=== PATIENT | male | born 1950 | race Caucasian/White ===

== ENCOUNTER 2021-04-24 17:32 | Emergency (ER) | payer MEDICARE, BC ==
[2021-04-24] MEDS ORDERED: Cephalexin 500 MG Cap PO STA (17:50)
--- NOTE | 2021-04-24 17:52 | EDM.PDOC ---
ED HPI GENERAL MEDICAL PROBLEM - General Stated Complaint: L MIDDLE FINGER PAIN Time Seen by Provider: 04/24/21 17:50 Source of Information: Reports: Patient History Limitations: Reports: No Limitations - History of Present Illness INITIAL COMMENTS - FREE TEXT/NARRATIVE: Patient presented to the ED because of left mid finger pain, swelling, redness and pain which started 2 days ago. He poked it an a serous dischage came out and the following day it's swollen and tender. Left Finger-Middle Pain Score (Numeric/FACES): 3 - Related Data Allergies Allergy/AdvReac Type Severity Reaction Status Date / Time No Known Allergies Allergy Verified 04/24/21 17:46 Home Meds: Home Meds cephALEXin [Keflex] 500 mg PO Q8H #30 cap 04/24/21 [Rx] ED ROS GENERAL - Review of Systems Review Of Systems: See Below Constitutional: Reports: No Symptoms HEENT: Reports: No Symptoms Respiratory: Reports: No Symptoms Cardiovascular: Reports: No Symptoms Endocrine: Reports: No Symptoms GI/Abdominal: Reports: No Symptoms : Reports: No Symptoms Musculoskeletal: Reports: No Symptoms Skin: Reports: Erythema Neurological: Reports: No Symptoms Psychiatric: Reports: No Symptoms Hematologic/Lymphatic: Reports: No Symptoms ED EXAM, SKIN/RASH Exam: See Below Exam Limited By: No Limitations General Appearance: Alert, No Apparent Distress Ears: Normal External Exam, Normal Canal, Normal TMs Nose: Normal Inspection, Normal Mucosa, No Blood Throat/Mouth: Normal Inspection, Normal Lips, Normal Teeth Head: Atraumatic, Normocephalic Neck: Normal Inspection, Supple, Non-Tender, Full Range of Motion Respiratory/Chest: No Respiratory Distress, Lungs Clear, Normal Breath Sounds, No Accessory Muscle Use, Chest Non-Tender Cardiovascular: Normal Peripheral Pulses, Regular Rate, Rhythm, No Edema, No JVD, No Murmur, No Rub GI/Abdominal: Normal Bowel Sounds, Soft, Non-Tender, No Organomegaly, No Distention, No Abnormal Bruit Back Exam: Normal Inspection, Full Range of Motion Extremities: Normal Inspection, Normal Range of Motion, Non-Tender, Normal Capillary Refill Neurological: Alert, Oriented, CN II-XII Intact, Normal Cognition, Normal Gait, Normal Reflexes, No Motor/Sensory Deficits Psychiatric: Normal Affect Course - Vital Signs Text/Narrative:: Keflex 500 mg PO x1 Last Recorded V/S: Last Vital Signs Temp 36.6 C 04/24/21 17:42 Pulse 81 04/24/21 17:42 Resp 16 04/24/21 17:42 BP 141/89 H 04/24/21 17:42 Pulse Ox 96 04/24/21 17:42 - Orders/Labs/Meds Meds: Medications Discontinued Medications Generic Name Dose Route Start Last Admin Trade Name Chaitanya PRN Reason Stop Dose Admin Cephalexin 500 mg 04/24/21 17:50 04/24/21 18:01 Cephalexin 500 Mg Cap PO 04/24/21 17:51 500 mg NOW STA Administration Departure - Departure Time of Disposition: 18:00 Disposition: Home, Self-Care 01 Condition: Good Clinical Impression: Cellulitis - Discharge Information Prescriptions: cephALEXin [Keflex] 500 mg PO Q8H #30 cap Instructions: Cellulitis, Adult, [id number] Referrals: PCP,None [Primary Care Provider] - Forms: ED Department Discharge Additional Instructions: Please read discharge instructions on cellulitis Soak in look warm water with a tsp of salt for 1 hour daily until swelling is gone Ibuprofen 600 mg with tylenol 500 mg every 4-6 hours as needed for pain Keflex/cephalexin 500 mg 3 times daily for 10 days Follow up as needed Sepsis Event Note (ED) - Evaluation Sepsis Screening Result: No Definite Risk - Focused Exam Vital Signs: Vital Signs Temp Pulse Resp BP Pulse Ox 04/24/21 17:42 36.6 C 81 16 141/89 H 96
== END 2021-04-24 18:04 | disposition home or self-care (01) ==
LOC: FB.ED 17:32
DX: L03.012 Cellulitis of left finger (principal)
CPT/HCPCS: 99283; A9270-GY